=== PATIENT | male | born 1990 | race American Indian/Alaskan Native ===

== ENCOUNTER 2018-07-14 11:44 | Emergency (ER) | payer OTHER ==
[2018-07-14 12:02] VITALS: BP 128/78
[2018-07-14] MEDS ORDERED: NORCO 5/325 PO STA (12:05)
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
== END 2018-07-14 15:00 | disposition home or self-care (01) ==
LOC: ED 11:44
DX: M62.830 Muscle spasm of back (principal); V49.49XA Driver injured in collision with other motor vehicles in traffic accident, initial encounter; Y93.89 Activity, other specified; Y92.89 Other specified places as the place of occurrence of the external cause; Y99.8 Other external cause status
CPT/HCPCS: 72100

== ENCOUNTER 2018-11-04 03:52 | Emergency (ER) | payer OTHER ==
[2018-11-04 04:08] VITALS: BP 126/87
--- NOTE | 2018-11-04 05:03 | Emergency Department Report ---
ED Anxiety HPI - General Chief Complaint: Anxiety Stated Complaint: ANXIETY Time Seen by Provider: 11/04/18 04:58 Source: patient Mode of arrival: Ambulatory - History of Present Illness Initial Comments: Patient is a 28-year-old male who presents the emergency room with complaints of anxiety that occurred around 2 AM this morning. Patient states that he felt chills all over his body, felt overwhelmed, had left-sided chest pain. He denies any chest pain currently. He denies any shortness of breath or palpitations. Patient states that he has had an anxiety episode in the past but has never seen anyone for this and is not on medications. Patient denies any SI, HI, or hallucinations. He denies any symptoms at all currently. Patient is a nonsmoker, non drinker, no drug use. - Related Data Home Medications: Previous Rx's Medication Instructions Recorded Last Taken Type Ibuprofen [Motrin] 600 mg PO Q8H PRN #12 tablet 10/14/17 Unknown Rx Sulfamethoxazole/Trimethoprim 1 each PO BID 10 Days #20 tablet 10/14/17 Unknown Rx [Bactrim DS TAB] Ketorolac [Toradol] 10 mg PO Q6H PRN #15 tablet 07/14/18 Unknown Rx Metoclopramide [Reglan] 10 mg PO BID #10 tab 07/14/18 Unknown Rx methOCARBAMOL [Robaxin TAB] 750 mg PO Q8H PRN #20 tablet 07/14/18 Unknown Rx Allergies/Adverse Reactions: Allergies Allergy/AdvReac Type Severity Reaction Status Date / Time No Known Allergies Allergy Verified 07/14/18 11:50 ED Review of Systems ROS: Stated complaint: ANXIETY Other details as noted in HPI Comment: All other systems reviewed and negative ED Past Medical Hx - Past Medical History Previous Medical History?: No - Surgical History Past Surgical History?: No - Social History Smoking Status: Never Smoker Substance Use Type: None - Medications Home Medications: Home Medications Medication Instructions Recorded Confirmed Last Taken Type Ibuprofen [Motrin] 600 mg PO Q8H PRN #12 tablet 10/14/17 Unknown Rx Sulfamethoxazole/Trimethoprim 1 each PO BID 10 Days #20 tablet 10/14/17 Unknown Rx [Bactrim DS TAB] Ketorolac [Toradol] 10 mg PO Q6H PRN #15 tablet 07/14/18 Unknown Rx Metoclopramide [Reglan] 10 mg PO BID #10 tab 07/14/18 Unknown Rx methOCARBAMOL [Robaxin TAB] 750 mg PO Q8H PRN #20 tablet 07/14/18 Unknown Rx ED Physical Exam - General Limitations: No Limitations General appearance: alert, in no apparent distress - Head Head exam: Present: atraumatic, normocephalic - Eye Eye exam: Present: normal appearance - ENT ENT exam: Present: mucous membranes moist - Respiratory Respiratory exam: Present: normal lung sounds bilaterally. Absent: respiratory distress, wheezes, rales, rhonchi, stridor, chest wall tenderness, accessory muscle use, decreased breath sounds, prolonged expiratory - Cardiovascular Cardiovascular Exam: Present: regular rate, normal rhythm, normal heart sounds. Absent: systolic murmur, diastolic murmur, rubs, gallop - Neurological Exam Neurological exam: Present: alert, oriented X3 - Psychiatric Psychiatric exam: Present: normal affect, normal mood - Skin Skin exam: Present: warm, dry, intact ED Course Vital Signs 11/04/18 03:58 Temperature 98.3 F Pulse Rate 82 Respiratory 18 Rate Blood Pressure 126/87 O2 Sat by Pulse 97 Oximetry ED Medical Decision Making - Medical Decision Making Patient is a 28-year-old male who presents the emergency room with complaints of anxiety that occurred around 2 AM this morning. Patient states that he felt chills all over his body, felt overwhelmed, had left-sided chest pain. He denies any chest pain currently. He denies any shortness of breath or palpitations. Patient states that he has had an anxiety episode in the past but has never seen anyone for this and is not on medications. Patient denies any SI, HI, or hallucinations. He denies any symptoms at all currently. Patient is a nonsmoker, non drinker, no drug use. Advised patient that due to him having the chest pain. Need to do an EKG and a chest x-ray just to rule out any cardiac issues or pneumothorax. He states he does not want to undergo any testing. Advised patient that he would need to sign out AGAINST MEDICAL ADVICE. Patient signed AMA form. pt given multiple community resources. Advised patient to return immediately for any new or worsening symptoms or if begin experiencing symptoms again. AMA: The patient is alert and oriented 3. The patient exhibits decision-making capacity. The patient is free from distracting injury. The risk of leaving without a complete medical examination, and AGAINST MEDICAL ADVICE were explained to the patient, and they included , disability paralysis, permanent loss of quality of life. The patient verbalized understanding to these, and when this able to articulate these risk in their own words - Differential Diagnosis anxiety, arrhythmia, PTX, musculoskeletal Critical care attestation.: If time is entered above; I have spent that time in minutes in the direct care of this critically ill patient, excluding procedure time. ED Disposition Clinical Impression: Anxiety, Chills Chest pain Qualifiers: Chest pain type: unspecified Qualified Code(s): R07.9 - Chest pain, unspecified Disposition: DC-07 LEFT AGAINST MED ADVICE Is pt being admited?: No Does the pt Need Aspirin: No Condition: Stable Instructions: Chest Pain (ED), Anxiety (ED) Additional Instructions: please follow up with a primary care doctor and a mental health specialist in the next 2-3 days. return immediately for any new or worsening symptoms or if begin experiencing symptoms again. Referrals: [facility] [Provider Group] - 2-3 Days [facility] [Outside] - 2-3 Days [facility] [Outside] - 2-3 Days [facility] [Outside] - 2-3 Days Forms: AMA Form Time of Disposition: 05:02 Print Language: TELUGU
== END 2018-11-04 05:04 | disposition left against medical advice (07) ==
LOC: ED 03:52
DX: F41.9 Anxiety disorder, unspecified (principal); Z79.899 Other long term (current) drug therapy

== ENCOUNTER 2019-05-14 18:04 | Emergency (ER) | payer SELFPAY ==
[2019-05-14 18:14] VITALS: BP 142/83
== END 2019-05-14 19:40 | disposition left against medical advice (07) ==
LOC: ED 18:04
DX: R00.2 Palpitations (principal); Z53.21 Procedure and treatment not carried out due to patient leaving prior to being seen by health care provider
CPT/HCPCS: 93005; 93010